=== PATIENT | male | born 1980 | race Caucasian/White ===

== ENCOUNTER → 2021-03-04 | Outpatient (CLI) | payer BC | LOC: RAD 14:37 | DX: J45.909 Unspecified asthma, uncomplicated (principal); R05 Cough | CPT/HCPCS: 71046 ==

== ENCOUNTER → 2021-03-17 | Outpatient (CLI) | payer BC | LOC: RAD 10:58 | DX: M79.661 Pain in right lower leg (principal); R22.41 Localized swelling, mass and lump, right lower limb; M79.671 Pain in right foot | CPT/HCPCS: 73590; 73610; 73630; 73650 ==

== ENCOUNTER → 2021-05-09 | Outpatient (CLI) | payer BC ==
[2021-05-09 10:29] LABS: HEMOGLOBIN 15.2 gm/dl (14.0-17.5); RED BLOOD COUNT 5.39 M/UL (4.20-5.50); WHITE BLOOD COUNT 6.1 K/UL (4.5-11.0)
[2021-05-09 10:51] LABS: BUN/CREATININE RATIO 17 (0-10)
== END ==
LOC: LAB 10:05
PROVIDERS: Internal Medicine Gastroenterology
DX: K51.518 Left sided colitis with other complication (principal); E78.5 Hyperlipidemia, unspecified; M10.09 Idiopathic gout, multiple sites
CPT/HCPCS: 80053; 80061; 84550; 85027; 86140

== ENCOUNTER → 2021-08-19 | Outpatient (CLI) | payer BC ==
[2021-08-19 11:37] LABS: HEMOGLOBIN 15.8 gm/dl (14.0-17.5); RED BLOOD COUNT 5.55 M/UL (4.20-5.50); WHITE BLOOD COUNT 7.8 K/UL (4.5-11.0)
[2021-08-19 12:01] LABS: BUN/CREATININE RATIO 13 (0-10)
== END ==
LOC: LAB 10:02
PROVIDERS: Internal Medicine Gastroenterology
DX: K58.0 Irritable bowel syndrome with diarrhea (principal)
CPT/HCPCS: 36415; 80053; 82150; 83690; 85025; 86140

== ENCOUNTER → 2022-04-14 | Outpatient (CLI) | payer BC ==
[2022-04-14 16:09] LABS: HEMOGLOBIN 15.8 gm/dl (14.0-17.5); RED BLOOD COUNT 5.52 M/UL (4.20-5.50); WHITE BLOOD COUNT 8.5 K/UL (4.5-11.0)
[2022-04-14 16:38] LABS: BUN/CREATININE RATIO 23 (0-10)
[2022-04-16 07:09] LABS: THYROXINE (T4) 4.3 ug/dL (4.5-12.0); VITAMIN D, 25-HYDROXY 29.1 ng/mL (30.0-100.0)
== END ==
LOC: LAB 15:26
PROVIDERS: Nurse Practitioner Family
DX: R53.83 Other fatigue (principal); I10 Essential (primary) hypertension; Z12.5 Encounter for screening for malignant neoplasm of prostate; E78.5 Hyperlipidemia, unspecified; K21.9 Gastro-esophageal reflux disease without esophagitis; K51.911 Ulcerative colitis, unspecified with rectal bleeding; R10.84 Generalized abdominal pain; E55.9 Vitamin D deficiency, unspecified
CPT/HCPCS: 36415; 80053; 80061; 82728; 82746; 83540; 83550; 83735; 84153; 84436; 84443; 84480; 85027; 85652; 86140

== ENCOUNTER → 2022-06-01 | Outpatient (CLI) | payer BC ==
[2022-06-01 17:27] LABS: HEMOGLOBIN 15.5 gm/dl (14.0-17.5); RED BLOOD COUNT 5.39 M/UL (4.20-5.50); WHITE BLOOD COUNT 8.4 K/UL (4.5-11.0)
[2022-06-01 17:54] LABS: BUN/CREATININE RATIO 16 (0-10)
[2022-06-03 08:12] LABS: THYROXINE (T4) 4.6 ug/dL (4.5-12.0); TRIIODOTHYRONINE (T3) 102 ng/dL (71-180)
[2022-06-03 14:11] LABS: LYME TOTAL ANTIBODY EIA Negative (Negative)
== END ==
LOC: LAB 16:46
PROVIDERS: Nurse Practitioner Family
DX: I10 Essential (primary) hypertension (principal); D68.9 Coagulation defect, unspecified; R05.9 Cough, unspecified; R53.83 Other fatigue
CPT/HCPCS: 80053; 82785; 84436; 84443; 84480; 85027; 85379; 86008; 86615; 86618; 86668; 86757

== ENCOUNTER → 2022-06-08 | Outpatient (CLI) | payer BC, OTHER | LOC: LAB 17:01 | DX: R10.11 Right upper quadrant pain (principal) | CPT/HCPCS: 36415; 82150; 83690 ==

== ENCOUNTER → 2022-06-30 | Outpatient (CLI) | payer BC ==
[2022-06-30 16:02] LABS: HEMOGLOBIN 15.1 gm/dl (14.0-17.5); RED BLOOD COUNT 5.28 M/UL (4.20-5.50); WHITE BLOOD COUNT 9.4 K/UL (4.5-11.0)
== END ==
LOC: RAD 15:21
PROVIDERS: Nurse Practitioner Family
DX: K51.911 Ulcerative colitis, unspecified with rectal bleeding (principal); R53.83 Other fatigue
CPT/HCPCS: 36415; 71046; 80076; 82565; 84520; 85027

== ENCOUNTER → 2022-07-03 | Outpatient (CLI) | payer BC, OTHER ==
[~2022-07-03] VITALS: Ht 182.9 cm; Wt 127.0 kg
== END ==
LOC: OPSV 06-09 12:00
DX: K51.50 Left sided colitis without complications (principal)
CPT/HCPCS: 96365; J3380; J7050

== ENCOUNTER → 2022-07-17 | Outpatient (CLI) | payer BC, OTHER ==
[~2022-07-17] VITALS: Ht 182.9 cm; Wt 127.0 kg
== END ==
LOC: OPSV 10:00
DX: K51.50 Left sided colitis without complications (principal)
CPT/HCPCS: 96365; J3380; J7050

== ENCOUNTER → 2022-08-14 | Outpatient (CLI) | payer BC, OTHER ==
[~2022-08-14] VITALS: Ht 182.9 cm; Wt 127.0 kg
[2022-08-14 10:47] LABS: HEMOGLOBIN 14.9 gm/dl (14.0-17.5); RED BLOOD COUNT 5.14 M/UL (4.20-5.50); WHITE BLOOD COUNT 6.5 K/UL (4.5-11.0)
[2022-08-14 11:39] LABS: BUN/CREATININE RATIO 16 (0-10)
== END ==
LOC: OPSV 09:53
PROVIDERS: Clinical Nurse Specialist Women's Health
DX: K51.919 Ulcerative colitis, unspecified with unspecified complications (principal)
CPT/HCPCS: 80053; 85025; 86140; 96365; J3380; J7050